=== PATIENT | male | born 1980 | race Caucasian/White ===

== ENCOUNTER 2020-05-07 13:18 | Emergency (ER) | payer OTHER ==
[~2020-05-07] VITALS: Ht 180.3 cm; Wt 85.1 kg
[2020-05-07] MEDS ORDERED: PRO AIR INH (13:52)
--- NOTE | 2020-05-07 13:55 | NUR ---
PT AMBULATORY TO ROOM FROM [facility], UPRIGHT STEADY GAIT. NAD NOTED. ALL MONITORS PLACED, VSS. CALL LIGHT W/I REACH
--- NOTE | 2020-05-07 14:55 | NUR ---
DR MYERS AT BEDSIDE. PT ASSESSMENT, POC DISCUSSED AND QUESTIONS ANSWERED. ORDERS REC'D
[2020-05-07 15:42] VITALS: BP 107/76
--- NOTE | 2020-05-07 15:43 | NUR ---
Patient given discharge instructions and they have confirmed that they understand the instructions. Patient ambulatory with steady gait.
== END 2020-05-07 15:43 | disposition home or self-care (01) ==
LOC: ED 14:54
DX: F41.0 Panic disorder [episodic paroxysmal anxiety] (principal); F17.200 Nicotine dependence, unspecified, uncomplicated
CPT/HCPCS: 99283